=== PATIENT | male | born 1990 | race Asian ===

== ENCOUNTER 2016-10-25 02:45 | Emergency (ER) | payer MEDICAID ==
[2016-10-25 07:10] VITALS: BP 142/86
== END 2016-10-25 07:10 | disposition home or self-care (01) ==
LOC: ED 02:45
DX: S63.263A Dislocation of metacarpophalangeal joint of left middle finger, initial encounter (principal); S63.265A Dislocation of metacarpophalangeal joint of left ring finger, initial encounter; S63.267A Dislocation of metacarpophalangeal joint of left little finger, initial encounter; W18.40XA Slipping, tripping and stumbling without falling, unspecified, initial encounter; Y93.89 Activity, other specified; Y92.89 Other specified places as the place of occurrence of the external cause; Y99.8 Other external cause status
CPT/HCPCS: 90715; J1170; J3490; Q0092; Q0162